=== PATIENT | female | born 1985 | race Caucasian/White ===

== ENCOUNTER 2018-09-01 22:59 | Outpatient (CLI) | payer OTHER ==
[2018-09-02] MEDS: ACETAMINOPHEN 500 MG TAB PO (00:55)
== END 2018-09-02 02:03 | disposition home or self-care (01) ==
LOC: OBT 22:59 → L-D 22:59
DX: O9A.213 Injury, poisoning and certain other consequences of external causes complicating pregnancy, third trimester (principal); R10.2 Pelvic and perineal pain; Z3A.38 38 weeks gestation of pregnancy
CPT/HCPCS: 76818; 85460; 86850; 86870; 86900; 86901